=== PATIENT | female | born 1990 | race American Indian/Alaskan Native ===

== ENCOUNTER 2020-09-30 20:30 | Emergency (ER) | payer MEDICAID ==
[2020-09-30 23:17] VITALS: BP 126/72
[2020-10-01 00:02] LABS: Bacteria,Urine 1+ /HPF (Negative); Bilirubin,Urine NEG (Negative); Blood,Urine LG (Negative); Color,Urine Yellow (Yellow); Mucus,Urine 2+ /HPF
[2020-10-01 00:47] LABS: Blood Urea Nitrogen 9 mg/dL (7-17); Hemolysis Index 10
[2020-10-01 00:48] LABS: BUN/Creatinine Ratio 13; Basophils % (Auto) 0.2 % (0.0-1.8); Eosinophils % (Auto) 0.1 % (0.0-4.3); Hematocrit 36.6 % (30.3-42.9); Hemoglobin 12.1 gm/dl (10.1-14.3); Lymphocytes # (Auto) 1.3 K/mm3 (1.2-5.4); Mean Corpuscular HGB Conc 33 % (30-34); Mean Corpuscular Volume 81 fl (79-97); Monocytes # (Auto) 0.6 K/mm3 (0.0-0.8); Monocytes % (Auto) 4.2 % (0.0-7.3); Platelet Count 357 K/mm3 (140-440); Red Cell Distribution Width 14.5 % (13.2-15.2)
--- NOTE | 2020-10-01 01:20 | Emergency Department Report ---
ED Abdominal Pain HPI - General Chief Complaint: Vaginal Bleeding Stated Complaint: 2MTHS PREG/HEAVY BLEEDING Time Seen by Provider: 10/01/20 00:58 Source: patient Mode of arrival: Ambulatory Limitations: No Limitations - History of Present Illness Initial Comments: Patient is a 30-year-old -[place] female currently 2 months who presents with bilateral lower abdominal pain cramping and vaginal bleeding intermittent for the past 2 days. Patient denies fevers or chills she has had one episode of vomiting on yesterday. Patient is currently tolerating p.o. symptoms are exacerbated by activity, symptoms are relieved by nothing tried. Patient is P1, G1, A0. pt blood type is O Positive MD Complaint: abdominal pain - Related Data Previous Rx's Medication Instructions Recorded Last Taken Type Acetaminophen [Tylenol] 650 mg PO Q6H PRN #30 capsule 10/01/20 Unknown Rx cephALEXin [Keflex] 500 mg PO BID 7 Days #14 cap 10/01/20 Unknown Rx Allergies Allergy/AdvReac Type Severity Reaction Status Date / Time No Known Allergies Allergy Unverified 09/30/20 23:21 ED Review of Systems ROS: Stated complaint: 2MTHS PREG/HEAVY BLEEDING Other details as noted in HPI Constitutional: malaise. denies: chills, fever Eyes: denies: eye pain, eye discharge, vision change ENT: denies: ear pain, throat pain Respiratory: denies: no symptoms reported, cough, shortness of breath, wheezing Cardiovascular: denies: chest pain, palpitations Endocrine: no symptoms reported Gastrointestinal: abdominal pain, nausea. denies: diarrhea, constipation, hematemesis, melena Genitourinary: as per HPI. denies: urgency, dysuria, frequency, hematuria, discharge Musculoskeletal: denies: back pain, joint swelling, arthralgia Skin: denies: rash, lesions Neurological: denies: headache, weakness, paresthesias Psychiatric: denies: anxiety, depression Hematological/Lymphatic: denies: easy bleeding, easy bruising ED Past Medical Hx - Past Medical History Previous Medical History?: No - Surgical History Past Surgical History?: No - Social History Smoking Status: Never Smoker - Medications Home Medications: Home Medications Medication Instructions Recorded Confirmed Last Taken Type Acetaminophen [Tylenol] 650 mg PO Q6H PRN #30 capsule 10/01/20 Unknown Rx cephALEXin [Keflex] 500 mg PO BID 7 Days #14 cap 10/01/20 Unknown Rx ED Physical Exam - General Limitations: No Limitations General appearance: alert, in no apparent distress - Head Head exam: Present: atraumatic, normocephalic - Eye Eye exam: Present: normal appearance, PERRL, EOMI Pupils: Present: normal accommodation - ENT ENT exam: Present: mucous membranes moist - Neck Neck exam: Present: normal inspection, full ROM. Absent: tenderness - Respiratory Respiratory exam: Present: normal lung sounds bilaterally. Absent: respiratory distress, wheezes, stridor, chest wall tenderness - Cardiovascular Cardiovascular Exam: Present: regular rate, normal rhythm, normal heart sounds - GI/Abdominal GI/Abdominal exam: Present: soft, tenderness (bilat lower abd ), normal bowel sounds. Absent: distended, guarding, rebound, rigid, bruit, hernia - Rectal Rectal exam: Present: deferred - External exam: Present: other (exam deferred by patient ) - Extremities Exam Extremities exam: Present: normal inspection, normal capillary refill. Absent: full ROM, tenderness - Back Exam Back exam: Present: normal inspection, full ROM. Absent: tenderness, CVA tenderness (R), CVA tenderness (L) - Neurological Exam Neurological exam: Present: alert, oriented X3, CN II-XII intact, normal gait - Expanded Neurological Exam Expanded Patient oriented to: Present: person, place, time Speech: Present: fluid speech Motor strength exam: RUE: 5, LUE: 5, RLE: 5, LLE: 5 Best Eye Response ([place]ro): (4) open spontaneously Best Motor Response (Tyro): (6) obeys commands Best Verbal Response (Tyro): (5) oriented Tyro Total: 15 - Psychiatric Psychiatric exam: Present: normal affect, normal mood - Skin Skin exam: Present: warm, dry, intact, normal color. Absent: rash ED Course Vital Signs 09/30/20 23:01 Temperature 98.7 F Pulse Rate 81 Respiratory 16 Rate Blood Pressure 126/72 O2 Sat by Pulse 100 Oximetry ED Medical Decision Making - Lab Data Result diagrams: 10/01/20 00:02 10/01/20 00:02 Labs 09/30/20 10/01/20 10/01/20 Unknown 00:02 00:02 WBC 13.3 H RBC 4.50 Hgb 12.1 Hct 36.6 MCV 81 MCH 27 L MCHC 33 RDW 14.5 Plt Count 357 Lymph % (Auto) 10.0 L [place] % (Auto) 4.2 Eos % (Auto) 0.1 Baso % (Auto) 0.2 Lymph # (Auto) 1.3 [place] # (Auto) 0.6 Eos # (Auto) 0.0 Baso # (Auto) 0.0 Seg Neutrophils % 85.5 H Seg Neutrophils # 11.4 H Sodium 135 L Potassium 3.7 Chloride 100.5 Carbon Dioxide 21 L Anion Gap 17 BUN 9 Creatinine 0.7 Estimated GFR > 60 BUN/Creatinine Ratio 13 Glucose 122 H Calcium 9.0 HCG, Quant Urine Color Yellow Urine Turbidity Slightly-cloudy Urine pH 5.0 Ur Specific [place] 1.025 Urine Protein 30 mg/dl Urine Glucose (UA) Neg Urine Ketones 80 Urine Blood Lg Urine Nitrite Neg Urine Bilirubin Neg Urine Urobilinogen 2.0 Ur Leukocyte Esterase Lg Urine WBC (Auto) 35.0 H Urine RBC (Auto) 6.0 U Epithel Cells (Auto) 15.0 H Urine Bacteria (Auto) 1+ Urine Mucus 2+ 10/01/20 00:02 WBC RBC Hgb Hct MCV MCH MCHC RDW Plt Count Lymph % (Auto) [place] % (Auto) Eos % (Auto) Baso % (Auto) Lymph # (Auto) [place] # (Auto) Eos # (Auto) Baso # (Auto) Seg Neutrophils % Seg Neutrophils # Sodium Potassium Chloride Carbon Dioxide Anion Gap BUN Creatinine Estimated GFR BUN/Creatinine Ratio Glucose Calcium HCG, Quant 3015 H Urine Color Urine Turbidity Urine pH Ur Specific [place] Urine Protein Urine Glucose (UA) Urine Ketones Urine Blood Urine Nitrite Urine Bilirubin Urine Urobilinogen Ur Leukocyte Esterase Urine WBC (Auto) Urine RBC (Auto) U Epithel Cells (Auto) Urine Bacteria (Auto) Urine Mucus - Radiology Data Radiology results: report reviewed, image reviewed US transvaginal, US OB <= 14 weeks fetus INDICATION / CLINICAL INFORMATION: pos preg vaginal bleeding. TECHNIQUE: Transabdominal. Duplex Color Doppler used: Yes. COMPARISON: None available FINDINGS: Empty gestational sac measuring 3.3 cm. No pole. Endometrial stripe measures 1.9 cm. RIGHT ADNEXA: No significant ovarian cyst or mass. Normal color Doppler blood flow. LEFT ADNEXA: No significant ovarian cyst or mass. Normal color Doppler blood flow. URINARY BLADDER: No significant abnormality. FREE FLUID: None. ADDITIONAL FINDINGS: None. IMPRESSION: 1. Failed intrauterine with empty intrauterine gestational sac. Signer Name: Ayan Parson MD Signed: 10/01/2020 3:37 AM Workstation Name: [id number] Transcribed By: JUAN Dictated By: Ayan Parson MD Electronically Authenticated By: Ayan Parson MD Signed Date/Time: 10/01/20336 DD/ 4 TD/TT: - Medical Decision Making Ultrasound OB demonstrates empty Sac likely failed , hCG 3500, last menstrual cycle 8 weeks ago, patient blood type is O+, labs noted, plan DC to home with prescriptions, follow-up with [facility] in 1 to 2 days. Patient verbalized agreement and understanding with discharge plan, there is no active bleeding at this time, patient DC'd in stable condition at this time. Critical care attestation.: If time is entered above; I have spent that time in minutes in the direct care o f this critically ill patient, excluding procedure time. ED Disposition Clinical Impression: Threatened miscarriage in early Disposition: DC-01 TO HOME OR SELFCARE Is pt being admited?: No Does the pt Need Aspirin: No Condition: Stable Instructions: Threatened Miscarriage, Vaginal Bleeding During , First Trimester Additional Instructions: Take medicaions as prescribed, follow up with [facility] in 2-3 days, return to emergency if symptoms worsen. Prescriptions: cephALEXin [Keflex] 500 mg PO BID 7 Days #14 cap Acetaminophen [Tylenol] 650 mg PO Q6H PRN #30 capsule PRN Reason: pain Referrals: KINGA LARA MD [Staff Physician] - 3-5 Days Forms: Work/School Release Form(ED) Time of Disposition: 04:37
--- NOTE | 2020-10-01 03:42 | Ultrasound Report ---
US transvaginal, US OB <= 14 weeks fetus INDICATION / CLINICAL INFORMATION: pos preg vaginal bleeding. TECHNIQUE: Transabdominal. Duplex Color Doppler used: Yes. COMPARISON: None available FINDINGS: Empty gestational sac measuring 3.3 cm. No pole. Endometrial stripe measures 1.9 cm. RIGHT ADNEXA: No significant ovarian cyst or mass. Normal color Doppler blood flow. LEFT ADNEXA: No significant ovarian cyst or mass. Normal color Doppler blood flow. URINARY BLADDER: No significant abnormality. FREE FLUID: None. ADDITIONAL FINDINGS: None. IMPRESSION: 1. Failed intrauterine with empty intrauterine gestational sac. Signer Name: Ayan Parson MD Signed: 10/01/2020 3:37 AM Workstation Name: [id number]
== END 2020-10-01 05:00 | disposition home or self-care (01) ==
LOC: ED 20:30
DX: O20.0 Threatened abortion (principal); Z3A.01 Less than 8 weeks gestation of pregnancy; Z79.899 Other long term (current) drug therapy
CPT/HCPCS: 36415; 76801; 76817; 76830; 80048; 81001; 84702; 85025; 87086